=== PATIENT | male | born 1940 | race Caucasian/White ===

== ENCOUNTER → 2016-10-22 | Outpatient (REF) | payer MEDICARE, OTHER ==
[2016-10-22 11:33] LABS: BASOPHILS % (AUTO) 1 % (0-2); EOSINOPHILS # (AUTO) 0.2 10^3uL; EOSINOPHILS % (AUTO) 2 % (0-4); LYMPHOCYTES # (AUTO) 1.4 X10^3; MEAN CORPUSCULAR HEMOGLOBIN 31.1 PG (26.0-34.0); MEAN CORPUSCULAR HGB CONC 32.1 g/dL (31.0-37.0); MEAN CORPUSCULAR VOLUME 97 FL (80-100); MEAN PLATELET VOLUME 10.1 FL (6.0-9.5); MONOCYTES # (AUTO) 0.4 X10^3; MONOCYTES % (AUTO) 6 % (3-11); NEUTROPHILS # (AUTO) 4.6 X10^3; NEUTROPHILS % (AUTO) 69 % (51-67); PLATELET COUNT 220 10^3uL (150-450); WHITE BLOOD COUNT 6.57 10^3uL (4.0-11.0)
[2016-10-22 12:19] LABS: ALBUMIN 3.6 g/dL (3.4-5.0); ANION GAP 12.9 MEQ/L (3-15); CALCULATED IONIZED CALCIUM 4.3 mg/dL (3.8-4.6); TOTAL PROTEIN 6.2 g/dL (6.4-8.5)
[2016-10-22 18:59] LABS: IRON 91 ug/dL (65-175); UNBOUND IRON CONTENT 158 ug/dl (126-382)
[2016-10-22 19:31] LABS: VITAMIN B 12 435 pg/mL (213-816)
== END ==
LOC: LAB 10:48
PROVIDERS: ATTEND Family Medicine
DX: D64.89 Other specified anemias (principal); E78.4 Other hyperlipidemia; F02.80 Dementia in other diseases classified elsewhere, unspecified severity, without behavioral disturbance, psychotic disturbance, mood disturbance, and anxiety; F34.1 Dysthymic disorder
CPT/HCPCS: 80053; 82607; 82728; 82746; 83540; 83550; 85025; 86592